=== PATIENT | female | born 1995 | race Hispanic/Latino ===

== ENCOUNTER 2020-05-01 16:00 | Emergency (ER) | payer OTHER ==
[2020-05-01] MEDS ORDERED: KETOROLAC TROMETHAMINE 15MG/ML ONE (16:57)
[2020-05-01] MEDS ORDERED: ORPHENADRINE CITRATE 30 MG/ML ML ONE (16:57)
== END 2020-05-01 21:06 | disposition home or self-care (01) ==
LOC: EDH 16:00
DX: S20.219A Contusion of unspecified front wall of thorax, initial encounter (principal); V89.2XXA Person injured in unspecified motor-vehicle accident, traffic, initial encounter; Y93.89 Activity, other specified; Y92.488 Other paved roadways as the place of occurrence of the external cause; Y99.8 Other external cause status
CPT/HCPCS: 71046; 72100; 73030; 81025; 96372 ×2; 99284; J1885; J2360

== ENCOUNTER 2022-08-03 09:56 | Emergency (ER) | payer OTHER ==
[~2022-08-03] VITALS: Ht 170.2 cm; Wt 72.6 kg
[2022-08-03] MEDS ORDERED: IBUP-2070 PO (10:27)
[2022-08-03] MEDS ORDERED: BACI30OI6 TP (10:27)
[2022-08-03] MEDS ORDERED: IBUPROFEN 600 MG TABLET PO ONE (10:30)
[2022-08-03] MEDS ORDERED: BACITRACIN 1 EACH PACKET TP ONE (10:30)
[2022-08-03 10:46] VITALS: BP 125/74
== END 2022-08-03 10:48 | disposition home or self-care (01) ==
LOC: EDH 09:56
DX: T30.0 Burn of unspecified body region, unspecified degree (principal); X08.8XXA Exposure to other specified smoke, fire and flames, initial encounter; Y93.89 Activity, other specified; Y92.89 Other specified places as the place of occurrence of the external cause; Y99.8 Other external cause status
CPT/HCPCS: 16020

== ENCOUNTER 2024-01-16 15:53 | Emergency (ER) | payer MEDICAID ==
[~2024-01-16] VITALS: Ht 170.2 cm; Wt 74.8 kg
[~2024-01-16 15:53] MED LIST: BACI30OI6 TP; IBUP-2070 PO
[2024-01-16 17:25] LABS: BASOPHILS # (AUTO) 0.04 K/uL (0.00-0.20); BASOPHILS % (AUTO) 0.4 % (0.0-5.0); EOSINOPHILS # (AUTO) 0.13 K/uL (0.00-0.70); EOSINOPHILS % (AUTO) 1.3 % (0.0-8.0); HEMATOCRIT 38.6 % (36-48); IMMATURE GRANULOCYTE ABSOLUTE 0.03 K/uL (0-1); LYMPHOCYTES # (AUTO) 2.3 K/uL (1.0-4.8); LYMPHOCYTES % (AUTO) 22.5 % (21.0-51.0); MEAN CORPUSCULAR HEMOGLOBIN 26.7 pg (27.0-33.0); MEAN CORPUSCULAR HGB CONC 33.2 g/dL (32.0-36.0); MEAN CORPUSCULAR VOLUME 80.4 fL (79-99); MONOCYTES # (AUTO) 0.7 K/uL (0.1-1.0); MONOCYTES % (AUTO) 6.6 % (3.0-13.0); NEUTROPHILS % (AUTO) 68.9 % (40.0-77.0); PLATELET COUNT (AUTO) 243 K/uL (130-400); RED CELL DISTRIBUTION WIDTH 15.6 % (11.0-15.5); WHITE BLOOD COUNT (AUTO) 10.2 K/uL (4.8-10.8)
[2024-01-16 17:41] LABS: INR 0.99 (0.85-1.15); PROTHROMBIN TIME 10.7 SEC (9.6-11.6)
[2024-01-16 17:42] LABS: CREATININE 0.6 mg/dL (0.5-1.0); PARTIAL THROMBOPLASTIN TIME 28.5 SEC (26.3-35.5); POTASSIUM 3.9 mmol/L (3.5-5.1)
[2024-01-16] MEDS: ondanSETRON 4MG INJ IVP ONE (17:42)
[2024-01-16] MEDS: 0.9%NACL 1000ML 1,000 ML IV ONE (17:42)
[2024-01-16 17:54] VITALS: BP 126/56; PULSE 82; RESP 16; TEMP 98.6; O2SAT 96
[2024-01-16] MEDS ORDERED: ONDA-243 PO (19:04)
--- NOTE | 2024-01-16 19:04 | ERN ---
General Chief Complaint: Vomiting in Stated Complaint: 9.3 WKS PREG, THROWING UP BLOOD Time Seen by MD: 16:46 Time Seen by Midlevel: 16:46 Source: patient History of Present Illness Initial Comments Patient is a 28-year-old female no significant past medical history presenting for evaluation of one episode of blood-tinged emesis that occurred prior to arrival. Patient reports being approximately seven weeks and was concerned so she decided to report to the ER for further evaluation. On arrival patient denies any other episodes of emesis or any other symptoms. Patient is asymptomatic. She specifically denies any abdominal pain, vaginal bleeding, dysuria, hematuria, or any other symptom. Patient has not yet established with a local OBGYN and is waiting for her insurance to be process in order to see and OBGYN. Allergies: Coded Allergies: No Known Allergies (Unverified Allergy, Unknown, 08/03/22) Home Meds Active Scripts Ondansetron (Ondansetron Odt) 4 Mg Tab.rapdis, 4 MG PO BID for 7 Days, #14 TAB Prov:JOCELYN KINNEY 01/16/24 Bacitracin (Bacitracin) 28.4 Gm Oint...g., 28.4 GM TP TID, #1 TUBE Prov:FITTING,LIZZETH [employer]ION WORKER 08/03/22 Ibuprofen (Ibuprofen) 600 Mg Tablet, 600 MG PO Q6H PRN for PAIN, #15 TAB Prov:FITTING,LIZZETH ADOPTION WORKER 08/03/22 Past Medical History Past Medical History: No Pertinent History Past Surgical History: None Female( History) : 1 Para: 0 Aborts: 0 ROS Dictation CONSTITUTIONAL: Negative except for HPI HEAD/FACE: Negative except for HPI EENT: Negative except for HPI RESPIRATORY: Negative except for HPI GASTROINTESTINAL/ABDOMINAL: Negative except for HPI GENITOURINARY: Negative except for HPI MUSCULOSKELETAL: Negative except for HPI INTEGUMENTARY: Negative except for HPI NEUROLOGICAL/PSYCH: Negative except for HPI HEMATOLOGIC/LYMPHATIC: Negative except for HPI All Systems Negative, Except as noted above. 13 point review of systems assessed and all negative except for above. Physical Exam Physical Exam Dictation Vital Signs reviewed General Appearance: Alert, oriented x 3, no acute distress, well developed, nourished. Head and Face: non-traumatic. Eyes: PERRL, pink conjunctivas, eyelid no trauma, anterior chamber with arcus senilis. Ears: Pinnas intact and no signs of trauma or erythema ear canals clear and no discharge TM no erythema Nose: No discharge, no bleeding. Oropharynx: Mouth normal, tongue pink, pharynx clear,no erythema, tonsils no exudates, no abscesses noted, mucous membrane moist Neck: Supple, non-tender, no thyromegaly, no masses, no JVD, no bruits Breast:Deferred Chest:No tenderness, no crepitus, no paradoxical movement, no retractions Lungs:Clear, well-ventilated, symmetric, no rales, no wheezing, no rhonchi, no stridor, good breath sounds bilaterally Heart: Regular rate, regular rhythm, no murmur, no gallops Vascular: no peripheral edema, Abdomen: Soft, positive bowel sounds, nondistended, no guarding, nontender, no rebound, no masses no hepatomegaly, no splenomegaly, no Brown's sign, no hernias. Rectal: Deferred Genital: Deferred Neurological: Normal speech, motor function intact, sensory function intact Musculoskeletal: Neck nontender, full range of motion, back nontender, full range of motion, Extremities: nontender, full range of motion Skin: Color pink, dry, no turgor, no rash, no lacerations, no abrasions, no contusions. Lymphatic: Deferred Results Laboratory and Microbiology Lab and Micro Result Laboratory Tests Test 01/16/24 17:10 White Blood Count 10.2 K/uL (4.8-10.8) Red Blood Count 4.80 MIL/uL (4.00-5.50) Hemoglobin 12.8 g/dL (12.0-16.0) Hematocrit 38.6 % (36-48) Mean Corpuscular Volume 80.4 fL (79-99) Mean Corpuscular Hemoglobin 26.7 pg (27.0-33.0) L Mean Corpuscular Hemoglobin Concent 33.2 g/dL (32.0-36.0) Red Cell Distribution Width 15.6 % (11.0-15.5) H Platelet Count 243 K/uL (130-400) Mean Platelet Volume 11.5 fL (7.5-10.5) H Immature Granulocyte % (Auto) 0.3 % (0-1) Neutrophils (%) (Auto) 68.9 % (40.0-77.0) Lymphocytes (%) (Auto) 22.5 % (21.0-51.0) Monocytes (%) (Auto) 6.6 % (3.0-13.0) Eosinophils (%) (Auto) 1.3 % (0.0-8.0) Basophils (%) (Auto) 0.4 % (0.0-5.0) Neutrophils # (Auto) 7.0 K/uL (1.8-7.7) Lymphocytes # (Auto) 2.3 K/uL (1.0-4.8) Monocytes # (Auto) 0.7 K/uL (0.1-1.0) Eosinophils # (Auto) 0.13 K/uL (0.00-0.70) Basophils # (Auto) 0.04 K/uL (0.00-0.20) Absolute Immature Granulocyte (auto 0.03 K/uL (0-1) Nucleated Red Blood Cells 0.0 % (0.0-0.19) Prothrombin Time 10.7 SEC (9.6-11.6) Prothromb Time International Ratio 0.99 (0.85-1.15) Activated Partial Thromboplast Time 28.5 SEC (26.3-35.5) Sodium Level 134 mmol/L (136-145) L Potassium Level 3.9 mmol/L (3.5-5.1) Chloride Level 100 mmol/L (101-111) L Carbon Dioxide Level 25 mmol/L (21-32) Blood Urea Nitrogen 10 mg/dL (7-18) Creatinine 0.6 mg/dL (0.5-1.0) Glomerular Filtration Rate Calc 125 mL/min (>90) Random Glucose 85 mg/dL (70-105) Total Calcium 9.4 mg/dL (8.5-10.1) Human Chorionic Gonadotropin, Quant [id number] mIU/mL (0-5) H Labs Reviewed?: Yes MDM MDM: Patient is a 28-year-old female no significant past medical history presenting for evaluation of one episode of blood-tinged emesis that occurred prior to arrival. Patient reports being approximately seven weeks and was concerned so she decided to report to the ER for further evaluation. On arrival patient denies any other episodes of emesis or any other symptoms. Patient is asymptomatic. She specifically denies any abdominal pain, vaginal bleeding, dysuria, hematuria, or any other symptom. Patient has not yet established with a local OBGYN and is waiting for her insurance to be process in order to see and OBGYN. On physical examination patient is in no acute distress. Abdominal examination is unremarkable. Her vital signs are stable. Patient is afebrile. Your CBC shows a normal white blood cell count at 10.2. Her hemoglobin is stable at 12.8. Her platelets are normal at 243. This her chemistries are unremarkable. Patient has an hCG quant of [id number]. Patient was observed in the emergency department for over 2 hours and has had no episodes of emesis. She continues to deny any abdominal pain, dysuria, hematuria, vaginal bleeding, or any other symptoms at this time. Patient will be discharged home with outpatient follow up with her OBGYN. Patient is agreeable with this plan and all questions have been answered. Differential diagnosis: 1st trimester , urinary tract infection, electrolyte abnormality There are no social concerns with this patient. Prescription drug management Prescriptions will include: Zofran Medical management and examination interpretation discussions were had by me with other qualified healthcare professionals as indicated for the patient's care. ED Course Orders Procedure Category Date Status Time Cbc With Differential LAB 01/16/24 Complete 15:59 Basic Metabolic Panel LAB 01/16/24 Complete 15:59 Pt And Ptt LAB 01/16/24 Complete 15:59 Hcg,Quantitative LAB 01/16/24 Complete 15:59 0.9%Nacl 1000ml (Ns PHA 01/16/24 Complete 1000ml) 16:00 Ondansetron 4mg Inj PHA 01/16/24 Complete (Zofran 4mg Inj) 16:30 Vital Signs Date Time Temp Pulse Resp B/P (MAP) Pulse Ox O2 Delivery O2 Flow Rate FiO2 01/16/24 17:54 98.6 82 16 126/56 96 Room Air* 0 21 01/16/24 15:59 98.1 70 16 115/68 98 Room Air 0 DX & DISP Disposition: Discharge Departure Impression: Primary Impression: Nausea and vomiting during Condition: Stable Scripts Ondansetron (Ondansetron Odt) 4 Mg Tab.rapdis 4 MG PO BID for 7 Days, #14 TAB Prov: JOCELYN KINNEY 01/16/24 Additional Instructions: Your blood work is stable. Your hCG quant is 134,848 You will need to follow up with OBGYN. I have given you multiple doctors you can choose from. If you develop any new or worsening symptoms please report to the ER for further evaluation. Referrals: ESSIE GAITAN MD, JAROD MD Time of Disposition: 18:52 I have reviewed the case, and I agree with, Diagnosis and Plan I performed this substantive portion of this visit. I have reviewed and personally made and approve the management plan that is documented in the note by myself or the [facility]. I acknowledge full responsibility for the patient's management plan. JOCELYN KINNEY Jan 16, 2024 19:04 MOOKIE BAUMANN MD Mar 02, 2024 13:59
== END 2024-01-16 19:29 | disposition home or self-care (01) ==
LOC: EDH 15:53
DX: O21.9 Vomiting of pregnancy, unspecified (principal); O26.891 Other specified pregnancy related conditions, first trimester; R10.2 Pelvic and perineal pain; Z3A.09 9 weeks gestation of pregnancy
CPT/HCPCS: 99283; 96374; 96361 ×2; 80048; 84702; 85025; 85610; 85730; 36415; J7030; J2405

== ENCOUNTER 2024-07-08 22:55 | Emergency (ER) | payer MEDICAID ==
[~2024-07-08] VITALS: Ht 170.2 cm; Wt 81.6 kg
[~2024-07-08 22:55] MED LIST changes: +ONDA-243 PO
[2024-07-08 22:57] VITALS: BP 115/80; PULSE 63; RESP 18; TEMP 98.6
--- NOTE | 2024-07-08 23:02 | NUR ---
NO PAIN AFTER TYLENOL SO DECIDED TO LEAVE.
[2024-07-09] MEDS ORDERED: AMOX500C2 PO (06:03)
== END 2024-07-08 23:04 | disposition left against medical advice (07) ==
LOC: EDH 22:55
DX: K08.89 Other specified disorders of teeth and supporting structures (principal); Z53.21 Procedure and treatment not carried out due to patient leaving prior to being seen by health care provider

== ENCOUNTER 2024-07-09 05:08 | Emergency (ER) | payer MEDICAID ==
[~2024-07-09] VITALS: Ht 170.2 cm; Wt 81.6 kg
[2024-07-09] MEDS: acetaMINOPHEN 325 MG TAB PO ONE (05:53)
[2024-07-09] MEDS ORDERED: AMOX500C2 PO (06:03)
--- NOTE | 2024-07-09 06:03 | ERN ---
ED Note History of Present Illness Stated Complaint: TOOTACHE Chief Complaint: Tooth Ache/Pain Time Seen by MD: 04:36 Dictation: This is a 28-year-old female who is 34 weeks presented to the emergency room with a right lower toothache. No fever chills or rigors. She was here earlier and took her own Tylenol while in the triage area and decided to go home as the pain was better but she returned with same toothache and she could not sleep Temperature 97.8 pulse 67 respirations 18 blood pressure 110/72 pulse oximetry 98% on room air Allergies: Coded Allergies: No Known Allergies (Unverified Allergy, Unknown, 08/03/22) Home Meds Active Scripts Amoxicillin (Amoxicillin) 500 Mg Capsule, 1 CAP PO TID for 10 Days, #30 CAP 0 Refills Prov:OMKAR BAUTISTA MD 07/09/24 Ondansetron (Ondansetron Odt) 4 Mg Tab.rapdis, 4 MG PO BID for 7 Days, #14 TAB Prov:JOCELYN KINNEY 01/16/24 Bacitracin (Bacitracin) 28.4 Gm Oint...g., 28.4 GM TP TID, #1 TUBE Prov:FITTINGLIZZETHP 08/03/22 Ibuprofen (Ibuprofen) 600 Mg Tablet, 600 MG PO Q6H PRN for PAIN, #15 TAB Prov:FITTINGLIZZETHP 08/03/22 Past Medical History Past Medical History: No Pertinent History Surgical History: None Family History: Negative Social History: Negative LMP: Nov 13, 2023 : 1 Para: 0 Aborts: 0 RN Note Reviewed/Agreed w/PFSH: Yes Review of System Dictation Constitutional: Negative for fever,chills, and weight loss Eyes: Negative for injury, pain,redness, and discharge ENT: Negative for injury,pain or swelling just the toothache. No bleeding no facial swelling or jaw swelling Cardiovascular: Negative for chest pain, palpitations, and edema Respiratory: Negative for shortness of breath, cough, and wheezing, Abdomen/GI: Negative for abdominal pain, nausea, vomiting, diarrhea, and constipation Back: Negative for injury and pain : Negative for injury, bleeding and discharge MS/Extremity: Negative for injury and deformity Skin: Negative for rash, and discoloration Neuro: Negative for headache, weakness, numbness, tingling, and seizure Psych: Negative for suicide ideation, homicidal ideation, and hallucinations Initial Vital Sign VS Vital Signs Date Time Temp Pulse Resp B/P (MAP) Pulse Ox O2 Delivery O2 Flow Rate FiO2 07/09/24 05:09 97.9 67 18 110/72 98 Room Air 0 07/09/24 05:47 21 Physical Exam Dictation General: awake, alert, NAD Head/Face: Normocephalic, atraumatic Eyes: PERRL, EOMI, vision at baseline ENT: oral cavity clear, TMs clear, no signs of infection lower jaw right-sided molars appear to have early cavities. Left side lower jaw molars also have hose and cavities Neck: Trachea midline, supple, no nuchal rigidity Cardiovascular: RRR, normal S1/S2, No MRGs, no JVD Respiratory: CTAB, no respiratory distress, No rales or wheezes Abdomen: Soft, non-tender, non-distended, normal bowel sounds, no guarding or rebound. Skin: Warm, dry, normal turgor, no rash MS/Extremity: Pulses equal, no cyanosis, neurovascular intact, FROM Neuro: COAx4, GCS 15, strength 5/5, CN 2-12 intact, normal cerebellar exam, normal gait, Psych: Normal behavior, mood, and affect normal Extremities-trace edema without any palpable cords, Homans sign is negative Results (Laboratory/Radiology) Labs Reviewed?: Yes ED Course ED Course Orders Procedure Category Date Status Time Acetaminophen 325 Tab PHA 07/09/24 Complete (Tylenol 325mg Tab 06:00 Current Medications Medications (Trade) Dose Ordered Sig/Onesimo Route PRN Reason Start Time Stop Time Status Last Admin Dose Admin Acetaminophen (TYLenol 325MG TAB) 650 mg ONCE ONCE PO 07/09/24 06:00 07/09/24 06:01 DC 07/09/24 05:53 Vital Signs Date Time Temp Pulse Resp B/P (MAP) Pulse Ox O2 Delivery O2 Flow Rate FiO2 07/09/24 05:47 98.4 61 18 115/55 98 Room Air* 0 21 07/09/24 05:09 97.9 67 18 110/72 98 Room Air 0 I We will administer Tylenol according to the patient's complaint. Once the results are available, will review and personally interpreted the labs to rule out any acute life-threatening emergency the trach require immediate intervention and treatment. I will then re-evaluate the patient after treatment and diagnostic exams have return to determine whether the patient requires any further testing, can safely be discharged home or need further admission to hospital for additional treatment and evaluation. We will discharge her on amoxicillin for any infection and she should follow up with her Ob Medical Decision Making MDM MDM: Differential diagnosis: Gingivitis, odontoid mitis, dental caries Rationale: Tests considered and ordered secondary to shared decision making include: Previous outside records reviewed: Old ER visits. Risk of complication and/or morbidity or mortality of patient management: None Medications-Per medication reconciliation Need for hospitalization: Patient does not meet criteria for hospitalization. Need for emergency major/minor surgery: No There are no social concerns with this patient. Prescription drug management Prescriptions will include symptomatic care Patient's prior external medical records from other ER visits were reviewed by me as indicated. Prior testing and results from previous visits were reviewed. Prior tests were taken into account with medical decision making and resource utilization, independent historian/historians were used to obtain complete medical history. I independently interpreted the test that were performed, results were reviewed by me and considered findings on radiology if ordered. Medical management and examination interpretation discussions were had by me with other qualified healthcare professionals as indicated for the patient's care. Problem List Problem List: (1) Dental caries (2) Toothache (3) (4) Periodontitis DX & DISP Disposition: Discharge Departure Impression: Primary Impression: Dental caries Additional Impressions: Toothache, , Periodontitis Condition: Stable Scripts Amoxicillin (Amoxicillin) 500 Mg Capsule 1 CAP PO TID for 10 Days, #30 CAP 0 Refills Prov: OMKAR BAUTISTA MD 07/09/24 Additional Instructions: Patient and the caregiver have been informed of all the diagnostic tests and the imaging conducted during the today's visit to the emergency room and has verbalized understanding of the results I have personally reviewed and interpreted all diagnostic exams performed here in the ER today as well as the vital signs documented by the nursing staff. The patient is now being discharged to home and should follow up with the primary care physician or the specialist as directed by the ER staff. Follow-up with primary care provider in 1 to 2 days. Take medications as directed here in the emergency room. Okay to continue home medications unless otherwise discussed during your visit in the emergency room today. Return to your nearest emergency room if symptoms worsen or if there is no improvement. Call 911 if you need immediate assistance. Take Tylenol or Motrin [id number] as needed and if no contraindications are present. Increase oral hydration. A wound culture or urine culture was ordered here in the emergency room department please follow-up with primary care provider and advise them to get repeat ports from our facility. If you had any Alpesh wrap/splints that were applied here, please do not remove them until you see your primary care or specialty. Referrals: BHAVANA CARABALLO MD (PCP) OMKAR BAUTISTA MD Jul 09, 2024 06:03
[2024-07-09 06:34] VITALS: BP 113/59; PULSE 63; RESP 18; TEMP 98.2; O2SAT 99
== END 2024-07-09 06:38 | disposition home or self-care (01) ==
LOC: EDH 05:08
DX: O26.893 Other specified pregnancy related conditions, third trimester (principal); K02.9 Dental caries, unspecified; Z3A.34 34 weeks gestation of pregnancy; Z79.899 Other long term (current) drug therapy
CPT/HCPCS: 99283